=== PATIENT | male | born 1965 | race Caucasian/White ===

== ENCOUNTER 2022-06-29 16:05 | Observation (INO) | payer OTHER ==
--- NOTE | 2022-06-29 17:29 | NUR ---
pt admitted to room with officer. contacted dr daley and he will come see pt.
--- NOTE | 2022-06-29 18:30 | NUR ---
pt taken to OR for surgery
[2022-06-29 19:50] VITALS: BP 98/69; PULSE 50; TEMP 97.6
[2022-06-29 20:05] VITALS: BP 116/58; PULSE 49
[2022-06-29 20:20] VITALS: BP 136/82; PULSE 48
[2022-06-29 20:35] VITALS: BP 130/65; PULSE 56
--- NOTE | 2022-06-29 21:36 | NUR ---
SHIFT REPORT FROM [facility], PATIENT IN OR AT SHIFT CHANGE. PATIENT BROUGHT UP STRAIGHT FROM OR TO ROOM. REPORT DONE AT BEDSIDE WITH PACU NURSE. PATIENT ALERT AND ORIENTED. VSS. TOLERATED PO FLUID AND FOOD. AMBULATED TO THE BATHROOM AND VOIDED WITHOUT ISSUE. HAD TYLENOL AND MOTRIN FOR PAIN PER DR. BANDA ORDERS. ORDER TO DISCHARGE TONIGHT DISCUSSED WITH PATIENT AND VOICE NETWORK ENGINEER. PATIENTS DISCHARGE TEACHING REVIEWED WITH THEM. PROVIDED WITH ADDITIONAL GAUZE AND TAPE FOR DRESSING CHANGE IF NEEDED. ALL QUESTIONS ANSWERED. IV TO L FA REMOVED, CATHETER TIP INTACT. APPLIED GAUZE AND COBAN AND HELD PRESSURE. PATIENT DISCHARGED AT 2105 BACK TO [facility] WITH VOICE NETWORK ENGINEER VIA WHEELCHAIR.
== END 2022-06-29 21:05 ==
LOC: SURG 16:05 → EDSTATUS 17:45 → SURG 17:45
PROVIDERS: ADMIT Surgery
DX: K40.90 Unilateral inguinal hernia, without obstruction or gangrene, not specified as recurrent (principal); Z87.891 Personal history of nicotine dependence
CPT/HCPCS: C1781; G0378; J0690; J1100; J2405; J2704; J3010; J7120